=== PATIENT | female | born 1940 | race Caucasian/White ===

== ENCOUNTER → 2019-08-31 15:16 | Outpatient (CLI) | payer MEDICARE, OTHER, SELFPAY ==
--- NOTE | 2019-08-31 15:25 | RAD_ITS ---
STUDY: X-RAY - ABDOMEN/PELVIS REASON FOR EXAM: Female, 79 years old. follow up left kidney stone TECHNIQUE: Single AP view of the abdomen / pelvis. COMPARISON: None. FINDINGS: Normal visualized lung bases. Pacemaker leads demonstrated. There is an unremarkable bowel gas pattern. There is no demonstrated free abdominal air. Right upper quadrant surgical clips demonstrated. Otherwise the visualized liver, spleen and kidneys are grossly normal in size and morphology. Normal soft tissue structures. There are diffuse degenerative changes of the visualized lumbar spine. RAD/Abdomen Single View IMPRESSION: Unremarkable x-ray examination of the abdomen and pelvis. Electronically Signed: Isi Anders MD at 2:56 EST , Service support ,
[2019-08-31 17:50] LABS: ALB/GLOB Ratio 0.9 RATIO (0.9-2.4); AST(SGOT) 13 U/L (15-37); Alanine Aminotransfer ALT/SGPT 26 U/L (13-56); Albumin, Serum 3.5 g/dL (3.2-5.0); Alkaline Phosphatase 112 U/L (45-117); Anion Gap 8 (5-15); BUN 21 mg/dL (7-18); BUN/Creat Ratio 25.4 RATIO (10-20); Calcium,Total 8.8 mg/dL (8.5-10.1); Chloride 106 mmol/L (98-107); Creatinine, Serum 0.83 mg/dL (0.55-1.02); EST Glomerular Filtration Rate 71 mL/min (>60); Est Glom Filt Rate - Afr Amer 85 mL/min (>60); Globulin 4.1 g/dL (2.2-4.2); Glucose 119 mg/dL (74-106); Potassium 4.2 mmol/L (3.5-5.1); Protein, Total 7.6 g/dL (6.4-8.2); Sodium Level 137 mmol/L (136-145); Uric Acid 7.3 mg/dL (2.6-6.0)
== END ==
PROVIDERS: Family Provider Family Medicine; PCP Family Medicine; Referring Provider Nurse Practitioner Adult Health; Visit Provider Nurse Practitioner Adult Health
DX: N20.0 Calculus of kidney (principal)
CPT/HCPCS: 36415; 74018; 80053; 84550

== ENCOUNTER → 2019-10-12 12:57 | Outpatient (CLI) | payer MEDICARE, OTHER, SELFPAY ==
--- NOTE | 2019-10-12 12:59 | CT_ITS ---
STUDY: CT ABDOMEN AND PELVIS WITHOUT CONTRAST REASON FOR EXAM: Female, 79 years old. Evaluation for kidney stones RADIATION DOSAGE (If Supplied By Facility): CTDIvol = ( 19.28 ) mGy, DLP = ( 972.88 ) mGycm TECHNIQUE: Transaxial images were obtained from the dome of the diaphragm to the symphysis pubis without oral contrast, and without intravenous contrast. Sagittal and coronal images were reconstructed. Individualized dose optimization techniques were used for this CT. COMPARISON: None. FINDINGS: The visualized lung bases are unremarkable. The visualized portions of the heart are within normal limits. Pacemaker leads are present in the right heart. There are subcentimeter hepatic hypodensities, too small to reliably assess. Gallbladder is removed. There is no ascites. Spleen and adrenals are normal. There is a 1.3 cm stone in the left inferior pole calyx with early staghorn appearance. There is a punctate right inferior calyceal stone. There is no hydronephrosis. There are multiple calcifications along the path of bilateral ureters, most probably vascular. However, a small, 2-3 mm, calculus is possibly located in the distal ureter and differentiation between distal ureteral and vascular calcifications is difficult. There is extensive sigmoid diverticulosis without diverticulitis. There is no intestinal obstruction. There is moderate right and mild to moderate left bilateral hip joint degeneration. Lumbar spine is intact and aligned. There is prior lumbar decompressive laminectomy. 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 CT/Abdomen/Pelvis without Cont IMPRESSION: 1. 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 2. No hydronephrosis. 3. Most probably distal pelvic vascular calcifications, small possibility of small distal ureteral nonobstructing stone. Electronically Signed: Juan Carlos Henao, at 19:36 EST Tel , Service support ,
== END ==
PROVIDERS: Family Provider Family Medicine; PCP Family Medicine; Referring Provider Nurse Practitioner Adult Health; Visit Provider Nurse Practitioner Adult Health
DX: N20.0 Calculus of kidney (principal)
CPT/HCPCS: 74176

== ENCOUNTER 2019-10-20 08:32 | Day surgery (SDC) | payer MEDICARE, OTHER, SELFPAY ==
[2019-10-20 08:54] VITALS: BP 146/92; PULSE 80; RESP 16; TEMP 36.6; O2SAT 98; BMI 38.2
[2019-10-20] MEDS: Lactated Ringers 1,000 ML 100 ML IV (09:12)
[2019-10-20] MEDS: Cefazolin 2 GM in 0.9% Normal Saline 100 ML IV (10:45)
--- NOTE | 2019-10-20 11:00 | DCINST_ITS ---
Discharge Diet: Light diet - advance as tolerated Discharge Activity: Return to Normal Activity Call your doctor if your incision/area has: Continuous Slow Oozing Call your doctor if you observe: Fever of 101 or Higher Suture Line Care: Avoid Pulling/Pushing, Avoid Pinching/Bending Allergies/Adverse Reactions: Allergies bacitracin [From Neosporin ([id number])] Allergy (Verified 10/20/19 08:46) blisters neomycin [From Neosporin ([id number])] Allergy (Verified 10/20/19 08:46) blisters polymyxin B [From Neosporin ([id number])] Allergy (Verified 10/20/19 08:46) blisters Medications to take at Discharge Ibuprofen [Ibu] 800 mg PO PRN PRN 10/16/19 Levothyroxine [Synthroid] 100 mcg PO DAILY 10/16/19 Loperamide HCl [Imodium A-D] 2 mg PO PRN PRN 10/16/19 Metformin HCl [Metformin HCl ER] 1,000 mg PO BID 10/16/19 Metoprolol Tartrate [Lopressor (Beta Kevin)] 50 mg PO DAILY 10/16/19 Metoprolol Tartrate [Lopressor (Beta Kevin)] 100 mg PO QHS 10/16/19 NIFEdipine [Procardia XL] 90 mg PO DAILY 10/16/19 Cephalexin [Keflex] 500 mg PO TID #15 cap 10/20/19 Ibuprofen 600 mg PO Q6H #20 tab 10/20/19 The following prescriptions were given: Ibuprofen 600 mg PO Q6H #20 tab Transmission Status: Pending to [id number] Cephalexin [Keflex] 500 mg PO TID #15 cap Transmission Status: Pending to [id number] Primary Care Physician: Neri Mccormick MD [Primary Care Provider] - Test Results: Test results from this visit will be discussed in further detail at your follow- up appointment, if applicable. Please Follow Up With: Oscar Sevilla MD When: please call to make an appointment.
--- NOTE | 2019-10-20 11:45 | OP.PCM_ITS ---
Report of Operation Date of Procedure: 10/20/19 Pre-Operative Diagnosis: Left large 11 mm renal calculus Post-Operative Diagnosis: The same Surgery/Procedure Performed:: Cystoscopy, balloon dilation of the left ureter, left ureteroscopy laser of stone, left stent placement, left retrograde pyelogram interpretation of fluoroscopic images. Description of Surgical Findings:: 79-year-old female who has a large stone in her left kidney is about 11 mm we have elected to proceed with laser lithotripsy of the stone. And she will have a stent and afterwards. Patient was taken back to the operating room after smooth induction of general anesthesia she was placed in supine position with the legs in stirrups the urethrovaginal area prepped and draped in usual sterile fashion went into the bladder with a 21 Grenadian rigid cystourethroscope. 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 We did patient the placement in Trendelenburg and this allowed a lot of stone fragments to go to the upper pole kidney and as I lasered the stones everything dissipated to small little pieces at the end of the case I lasered a little tiny pieces I then performed a retrograde pyelogram and then put a wire up in the kidney and then over the wire place a stent it was a 6 Grenadian by 26 cm stent once a stent was in good position then pulled the wire stent: The kidney bladder good position I drained the bladder patient anesthetic was reversed we left the string on the stent long so we get extracted easily in the office next week and the patient's anesthetic was reversed she was taken back to PACU in good condition. Type of Anesthesia:: General Drains: stent left side - Admit VTE Documentation VTE Present on Admission: No VTE Mechan Device Prophylaxis: SCD's
[2019-10-20 11:55] VITALS: BP 145/74; BP 146/92; PULSE 68; RESP 16; TEMP 37.1; O2SAT 95
[2019-10-20 12:00] VITALS: BP 146/70; BP 146/92; PULSE 67; RESP 16; O2SAT 95
[2019-10-20 12:15] VITALS: BP 146/92; BP 149/80; PULSE 66; RESP 16; O2SAT 93
[2019-10-20 12:32] VITALS: BP 146/92; BP 167/98; PULSE 69; RESP 16; TEMP 36.8; O2SAT 93
[2019-10-20 13:01] VITALS: BP 146/92
[2019-10-20 13:51] LABS: Bedside Glucose 142 mg/dL (70-110)
== END 2019-10-20 13:08 | disposition home or self-care (01) ==
LOC: SDC 08:32 → AC 08:33
PROVIDERS: PCP Family Medicine; Referring Provider Urology; Visit Provider Urology
PROC: 0TJ98ZZ Inspection of Ureter, Via Natural or Artificial Opening Endoscopic (ICD-10-PCS; CPT 52352; principal; 2019-10-20 10:30)
DX: N20.0 Calculus of kidney (principal); N30.80 Other cystitis without hematuria; I51.9 Heart disease, unspecified; E11.9 Type 2 diabetes mellitus without complications; Z85.3 Personal history of malignant neoplasm of breast; K21.9 Gastro-esophageal reflux disease without esophagitis; Z95.0 Presence of cardiac pacemaker; Z98.1 Arthrodesis status
CPT/HCPCS: 52332; 76000; 82962; J7120; C2617; J2405

== ENCOUNTER → 2022-01-06 | Outpatient (CLI) | payer MEDICARE, OTHER, SELFPAY | END | disposition home or self-care (01) | LOC: LABSPEC 16:55 | PROVIDERS: PCP Family Medicine; Visit Provider Urology | DX: N20.0 Calculus of kidney (principal) | CPT/HCPCS: 82360 ==